=== PATIENT | female | born 1945 | race Caucasian/White ===

== ENCOUNTER 2020-12-12 07:52 | Outpatient (CLI) | payer OTHER ==
[~2020-12-12 07:52] MED LIST: ULTRACET PO
[2021-01-16] MEDS ORDERED: ULTRACET PO (09:21)
[2021-01-16] MEDS ORDERED: NEURONTIN300 MG PO (09:22)
== END 2020-12-12 18:00 | disposition home or self-care (01) ==
LOC: LAB 07:52
DX: R05 Cough (principal); Z03.818 Encounter for observation for suspected exposure to other biological agents ruled out; R06.02 Shortness of breath; J12.82 Pneumonia due to coronavirus disease 2019; M35.81 Multisystem inflammatory syndrome; M35.89 Other specified systemic involvement of connective tissue; Z20.822 Contact with and (suspected) exposure to COVID-19

== ENCOUNTER 2020-12-26 09:27 | Outpatient (CLI) | payer OTHER ==
[2020-12-26] MEDS ORDERED: ULTRACET PO (11:35)
[2021-01-16] MEDS ORDERED: ULTRACET PO (09:21)
[2021-01-16] MEDS ORDERED: NEURONTIN300 MG PO (09:22)
== END 2020-12-26 09:28 | disposition home or self-care (01) ==
LOC: LAB 09:27
PROVIDERS: ATTEND Physical Medicine & Rehabilitation
DX: R05 Cough (principal); Z03.818 Encounter for observation for suspected exposure to other biological agents ruled out; Z20.822 Contact with and (suspected) exposure to COVID-19; R06.02 Shortness of breath; J12.82 Pneumonia due to coronavirus disease 2019; M35.81 Multisystem inflammatory syndrome; M35.89 Other specified systemic involvement of connective tissue; Z11.52 Encounter for screening for COVID-19